=== PATIENT | male | born 1960 | race Caucasian/White ===

== ENCOUNTER 2023-10-12 06:05 | Day surgery (SDC) | payer BC, SELFPAY ==
--- NOTE | 2023-10-11 09:06 | PTCARENOTE ---
Patients last does of Penny- 10/06- Kathy @ Dr. Alvarez office notified- she stated that surgeon was aware and spoke with anest regarding the case. Surgery to be performed as as scheduled.
[2023-10-12 07:04] VITALS: BP 128/89
[2023-10-12] MEDS: TYLENOL 1000 MG PO (07:09)
[2023-10-12] MEDS: NORMOSOL-R 1000 IV (07:16)
[2023-10-12 07:21] LABS: Glucose - Point of Care 108 mg/dl (70-99)
[2023-10-12 08:28] VITALS: BP 108/80
[2023-10-12 08:30] VITALS: BP 108/72
[2023-10-12 08:45] VITALS: BP 120/77
[2023-10-12 09:00] VITALS: BP 126/86
[2023-10-12 09:15] VITALS: BP 129/83
== END 2023-10-12 09:45 | disposition home or self-care (01) ==
LOC: SDS 06:05
PROVIDERS: ATTENDING PHYSICIAN Surgery
PROC: 0JB60ZZ Excision of Chest Subcutaneous Tissue and Fascia, Open Approach (ICD-10-PCS; 2023-10-12)
DX: D17.1 Benign lipomatous neoplasm of skin and subcutaneous tissue of trunk (principal); E11.9 Type 2 diabetes mellitus without complications; I25.10 Atherosclerotic heart disease of native coronary artery without angina pectoris; I25.2 Old myocardial infarction; Z79.84 Long term (current) use of oral hypoglycemic drugs; Z95.5 Presence of coronary angioplasty implant and graft
CPT/HCPCS: 21552; 88304; 82962